=== PATIENT | female | born 1985 | race African-American/Black ===

== ENCOUNTER 2017-07-08 10:10 | Emergency (ER) | payer OTHER ==
[~2017-07-08] VITALS: Ht 175.3 cm; Wt 133.0 kg
[2017-07-08 10:33] VITALS: BP 126/50
[2017-07-08] MEDS ORDERED: MOTRIN800 MG PO (12:10)
[2017-07-08] MEDS ORDERED: FLEXERIL10 MG PO (12:10)
== END 2017-07-08 12:23 | disposition home or self-care (01) ==
LOC: EME 10:10
DX: R51 Headache (principal); S13.4XXA Sprain of ligaments of cervical spine, initial encounter; V43.52XA Car driver injured in collision with other type car in traffic accident, initial encounter; Y92.410 Unspecified street and highway as the place of occurrence of the external cause
CPT/HCPCS: 99281; 99283

== ENCOUNTER 2017-10-11 11:23 | Emergency (ER) | payer SELFPAY ==
[~2017-10-11] VITALS: Ht 175.3 cm; Wt 133.7 kg
[~2017-10-11 11:23] MED LIST: FLEXERIL10 MG PO; MOTRIN800 MG PO
[2017-10-11 14:56] VITALS: BP 130/50
== END 2017-10-11 14:56 | disposition home or self-care (01) ==
LOC: EME 11:23
DX: S70.01XA Contusion of right hip, initial encounter (principal); J02.9 Acute pharyngitis, unspecified; W22.09XA Striking against other stationary object, initial encounter; G89.29 Other chronic pain
CPT/HCPCS: 73502; 87651 90; 99281; 99283

== ENCOUNTER 2017-12-06 10:13 | Emergency (ER) | payer SELFPAY ==
[~2017-12-06] VITALS: Ht 175.3 cm; Wt 140.7 kg
[2017-12-06 10:20] VITALS: BP 125/79
== END 2017-12-06 11:30 | disposition left against medical advice (07) ==
LOC: EME 10:13
DX: Z32.00 Encounter for pregnancy test, result unknown (principal); Z53.21 Procedure and treatment not carried out due to patient leaving prior to being seen by health care provider
CPT/HCPCS: 81003; 84702

== ENCOUNTER 2018-01-28 23:19 | Emergency (ER) | payer BC ==
[~2018-01-28] VITALS: Ht 175.3 cm; Wt 138.4 kg
[2018-01-28 23:51] LABS: HEMATOCRIT 34.8 % (36.0-46.0); MCH 29.9 PG (29.0-34.0); MCHC 34.5 G/DL (30.0-36.0); MCV 86.8 FL (83-99); PLATELET COUNT 227 K/uL (156-360); RBC DIS.WIDTH-CV 13.9 % (11.8-14.6); RBC DIS.WIDTH-SD 44.6 % (39-53); RED BLOOD COUNT 4.01 M/uL (3.80-5.20)
[2018-01-29 00:34] LABS: APPEARANCE SL.HAZY ((CLEAR)); BILIRUBIN NEGATIVE; BLOOD LARGE; COLOR YELLOW ((YELLOW)); GLUCOSE (STRIP) NEGATIVE; KETONES 5; LEUKOCYTES MODERATE; NITRITE NEGATIVE; PROTEIN (STRIP) 30; SPECIFIC GRAVITY 1.029 (1.000-1.030); UROBILINOGEN 0.2 MG/DL (0.2-1.0)
[2018-01-29 00:39] LABS: BACTERIA RARE /HPF; EPITHELIAL CELLS 1+ /HPF; HYALINE CASTS 0-5 /LPF; MUCUS TRACE /LPF; UCUL ADDED? YES
[2018-01-29] MEDS ORDERED: KEFLEX500 MG PO (01:46)
[2018-01-29 02:01] VITALS: BP 124/75
== END 2018-01-29 02:02 | disposition home or self-care (01) ==
LOC: EME 23:19
DX: O23.41 Unspecified infection of urinary tract in pregnancy, first trimester (principal); O20.9 Hemorrhage in early pregnancy, unspecified; Z3A.13 13 weeks gestation of pregnancy
CPT/HCPCS: 76801; 81003; 84702; 85027; 86900; 86901; 87086; 99281; 99284